=== PATIENT | female | born 1995 | race Caucasian/White ===

== ENCOUNTER 2017-01-21 23:59 | Emergency (ER) | payer SELFPAY | END 2017-01-22 01:06 | disposition home or self-care (01) | LOC: ER 23:59 | DX: S00.81XA Abrasion of other part of head, initial encounter (principal); F17.200 Nicotine dependence, unspecified, uncomplicated; Y04.0XXA Assault by unarmed brawl or fight, initial encounter | CPT/HCPCS: 99284; J1885 ==